=== PATIENT | female | born 1955 | race Caucasian/White ===

== ENCOUNTER → 2018-01-18 | Day surgery (SDC) | payer OTHER ==
--- NOTE | 2018-01-19 17:53 | PATH ---
Cytology Non-Gynecological Report Patient Name: BRITTNI FOSS [facility]. Rec. #: [id number] /Age/Gender: 1955 (Age: 62) / F Account: [id number] Location: RADIOLOGY [facility] Taken: 01/18/2018 Received: 01/18/2018 Reported: 01/19/2018 Physicians: Anamaria Shepard M.D. Specimen(s) Received RIGHT THYROID FNA Clinical History Right thyroid nodule, 1.97 x 1.03 x 1.68 cm Final Diagnosis THYROID, RIGHT, FINE NEEDLE ASPIRATION: SATISFACTORY FOR EVALUATION. BETHESDA CLASS II: BENIGN. CYTOLOGIC FINDINGS ARE CONSISTENT WITH A BENIGN FOLLICULAR NODULE. SMALL FOLLICULAR CELLS, FEW MACROPHAGES, AND ABUNDANT COLLOID PRESENT. Electronically Signed Brittni Kaba M.D. Gross Description Received are eight direct smears, four of which are air-dried and Diff-Quik stained, and four of which are alcohol fixed and Pap stained. Also received is 15 ml of bloody formalin from which one cellblock is prepared.
== END | disposition home or self-care (01) ==
LOC: JRADIR 08:40
PROVIDERS: ATTEND Internal Medicine Endocrinology, Diabetes & Metabolism
PROC: 0G9H3ZX Drainage of Right Thyroid Gland Lobe, Percutaneous Approach, Diagnostic (ICD-10-PCS; principal; 2018-01-18)
DX: E04.1 Nontoxic single thyroid nodule (principal)
CPT/HCPCS: 76942; 88173; 88305-TC

== ENCOUNTER 2019-08-14 04:45 | Day surgery (SDC) | payer OTHER ==
[2019-08-10 15:33] VITALS: BMI 25.0
[2019-08-14] MEDS ORDERED: PROPOFOL 20 ML ONE (10:05)
[2019-08-14] MEDS ORDERED: MIDAZOLAM HCL 2 MG/2 ML SINGLE DOSE VIAL ONE (10:05)
[2019-08-14] MEDS ORDERED: DEXAMETHASONE SOD PHOSPHATE 4 MG/1 ML VIAL ONE (10:07)
[2019-08-14] MEDS ORDERED: LIDOCAINE HCL/PF 2% SDV 5ML VIAL ONE (10:07)
--- NOTE | 2019-08-14 10:20 | HP ---
History & Physical Update - History History: No Change - Physical Physical: No Change - Assessment Assessment: No Change - Plan Plan: No Change (H&P reviwed , no changes , for hysteroscopy , D&C)
[2019-08-14] MEDS ORDERED: KETOROLAC TROMETHAMINE 30 MG/1 ML VIAL ONE (10:50)
[2019-08-14] MEDS ORDERED: oxyCODONE HCL 5 MG TABLET PO PRN (12:09)
[2019-08-14] MEDS ORDERED: ONDANSETRON 4 MG/2 ML VIAL IVPUSH PRN (12:09)
[2019-08-14] MEDS ORDERED: LACTATED RINGERS SOLUTION 1,000 ML IV SCH (12:15)
[2019-08-14 14:04] VITALS: TEMP 97.8
--- NOTE | 2019-08-14 14:28 | OP ---
Operative Note - Note: Operative Date: 08/14/19 Pre-Operative Diagnosis: thicken EM , fibroid, post menopausal Operation: hysteroscopy D&C Findings: atrophic EM, 2 area of small polypoid EM, Surgeon: Hernan Rubio Anesthesia: General Specimens Removed: EMC Estimated Blood Loss (mls): 25 Drains & Tubes with Location: none Blood Volume Replaced (mls): 0 Operative Report Dictated: Yes
[2019-08-14 15:07] VITALS: BP 142/77; PULSE 69
--- NOTE | 2019-08-14 15:17 | OP ---
DATE OF OPERATION: 08/14/2019 PREOPERATIVE DIAGNOSES: Thickened endometrium. Fibroid uterus. Menopausal state. POSTOPERATIVE DIAGNOSES: Thickened endometrium. Fibroid uterus. Menopausal state. PROCEDURES: Hysteroscopy. Dilation and curettage. SURGEON: Hernan Rubio MD ANESTHESIA: General. ANESTHESIOLOGIST: Belkis Gonzalez MD ESTIMATED BLOOD LOSS: 25 mL. OPERATION: Patient was taken to the operating room and had adequate general anesthesia in dorsal lithotomy position. Examination under anesthesia revealed external genitalia to be normal; vagina was atrophic; cervix was clean; no gross lesions; uterus was slightly prominent and irregular with small myomas; adnexa - no masses were palpable. Then, with a weighted speculum in the vagina, anterior lip of cervix was grasped with a single-tooth tenaculum. Uterine cavity was sounded to 6 cm. Then, cervix was slightly dilated with Hegar dilator and then hysteroscope was introduced into the uterine cavity. Endocervical canal appeared to be normal. There were a couple of small, polypoid-like areas at the fundal area and then at the lower uterine segment area. Most of the endometrium appeared to be atrophic. Both cornual regions were identified. No submucous myoma noted. Then, hysteroscope was withdrawn, and cervix was gradually dilated with Hegar dilator, and then endometrium was curetted. A small amount of tissue was obtained. Patient tolerated procedure well. Left the OR in good condition. HERNAN RUBIO M.D. [id number]
--- NOTE | 2019-08-17 15:14 | PATH ---
Surgical Pathology Report Patient Name: AYANA FOSS [facility]. Rec. #: [id number] /Age/Gender: 1955 (Age: 64) / F Account: [id number] Location: [facility] SURGICAL Taken: 08/14/2019 Received: 08/16/2019 Reported: 08/17/2019 Physicians: Hernan Rubio M.D. Specimen(s) Received ENDOMETRIAL CURETTINGS Clinical History Fibroid uterus Final Diagnosis ENDOMETRIAL CURETTINGS: FRAGMENTS OF ENDOMETRIAL POLYP, AND MIXED ENDOCERVICAL/ENDOMETRIAL POLYP. SEPARATE STRIPS OF WEAKLY PROLIFERATIVE ENDOMETRIAL GLANDS, MAY REPRESENT ATROPHIC ENDOMETRIUM. Electronically Signed Bryon Abraham M.D. Gross Description Received in formalin labeled "endometrial curetting," is a 0.9 x 0.6 x 0.2 cm aggregate of sullivan-brown soft tissue fragments. The formalin is filtered and the specimen is entirely submitted in one cassette. /08/16/2019 saudi08/16/2019
== END 2019-08-14 14:45 | disposition home or self-care (01) ==
LOC: JASU-SURG 04:45
PROVIDERS: ATTEND Obstetrics & Gynecology
PROC: 0UDB7ZX Extraction of Endometrium, Via Natural or Artificial Opening, Diagnostic (ICD-10-PCS; principal; 2019-08-14 11:00)
PROC: 0UJD8ZZ Inspection of Uterus and Cervix, Via Natural or Artificial Opening Endoscopic (ICD-10-PCS; 2019-08-14 11:00)
DX: D25.9 Leiomyoma of uterus, unspecified (principal); Z78.0 Asymptomatic menopausal state
CPT/HCPCS: 88305-TC; 94760

== ENCOUNTER 2022-01-21 04:43 | Day surgery (SDC) | payer OTHER ==
[2022-01-19 10:55] VITALS: BMI 24.3
[2022-01-21 11:55] VITALS: TEMP 97.7
[2022-01-21 12:58] VITALS: BP 114/68; PULSE 75
== END 2022-01-21 12:40 | disposition home or self-care (01) ==
LOC: JASU-ENDO 04:43
PROVIDERS: ATTEND Internal Medicine Gastroenterology
PROC: 0DBK8ZX Excision of Ascending Colon, Via Natural or Artificial Opening Endoscopic, Diagnostic (ICD-10-PCS; principal; 2022-01-21 11:00)
DX: Z12.11 Encounter for screening for malignant neoplasm of colon (principal); Z86.010 Personal history of colon polyps; Z80.0 Family history of malignant neoplasm of digestive organs; D12.2 Benign neoplasm of ascending colon
CPT/HCPCS: 88305-TC

== ENCOUNTER 2023-01-27 04:15 | Day surgery (SDC) | payer OTHER ==
[2023-01-26 11:11] VITALS: BMI 24.3
[2023-01-27 10:11] VITALS: TEMP 97.2
[2023-01-27 10:27] VITALS: PULSE 62
[2023-01-27 11:29] VITALS: BP 126/59; RESP 20
== END 2023-01-27 11:13 | disposition home or self-care (01) ==
LOC: JASU-ENDO 04:15
PROVIDERS: ATTEND Internal Medicine Gastroenterology
PROC: 0DB68ZX Excision of Stomach, Via Natural or Artificial Opening Endoscopic, Diagnostic (ICD-10-PCS; 2023-01-27)
PROC: 0DB78ZX Excision of Stomach, Pylorus, Via Natural or Artificial Opening Endoscopic, Diagnostic (ICD-10-PCS; 2023-01-27)
PROC: 0DBM8ZX Excision of Descending Colon, Via Natural or Artificial Opening Endoscopic, Diagnostic (ICD-10-PCS; principal; 2023-01-27 09:30)
DX: Z12.11 Encounter for screening for malignant neoplasm of colon (principal); K63.5 Polyp of colon; K64.8 Other hemorrhoids; Z86.010 Personal history of colon polyps; R10.84 Generalized abdominal pain; R11.0 Nausea
CPT/HCPCS: 88305-TC; 88342-TC

== ENCOUNTER 2024-03-13 05:03 | Day surgery (SDC) | payer OTHER ==
[2024-03-12 08:52] VITALS: BMI 23.2
[2024-03-13] MEDS ORDERED: ONDANSETRON 4 MG/2 ML VIAL IVPUSH PRN ×3 (07:50→10:29)
[2024-03-13] MEDS ORDERED: LACTATED RINGERS SOLUTION 1,000 ML IV SCH ×2 (08:00→10:30)
[2024-03-13] MEDS ORDERED: MIDAZOLAM HCL 2 MG/2 ML SINGLE DOSE VIAL ONE (09:41)
[2024-03-13] MEDS ORDERED: LIDOCAINE HCL/PF 2% SDV 5ML VIAL ONE (09:41)
[2024-03-13] MEDS ORDERED: DEXAMETHASONE SOD PHOSPHATE 4 MG/1 ML VIAL ONE (09:55)
[2024-03-13] MEDS ORDERED: ONDANSETRON 4 MG/2 ML VIAL ONE (09:55)
[2024-03-13] MEDS ORDERED: KETOROLAC TROMETHAMINE 30 MG/1 ML VIAL ONE (09:56)
[2024-03-13] MEDS ORDERED: IBUPROFEN 600 MG TABLET (FP) PO PRN (10:27)
[2024-03-13] MEDS ORDERED: IBUPROFEN 800 MG/8 ML IJ IVPB PRN (10:27)
[2024-03-13] MEDS ORDERED: oxyCODONE HCL 5 MG TABLET PO PRN ×2 (10:27→10:29)
[2024-03-13] MEDS ORDERED: PROMETHAZINE HCL 25 MG/1 ML VIAL IVPB PRN (10:29)
[2024-03-13] MEDS ORDERED: ELECTROLYTE-148 SOLN 1,000 ML IV SCH (10:30)
[2024-03-13 11:29] VITALS: RESP 18
[2024-03-13 13:07] VITALS: BP 141/65; PULSE 59; TEMP 97.3
== END 2024-03-13 13:07 | disposition home or self-care (01) ==
LOC: JASU-SURG 05:03
PROVIDERS: ATTEND Obstetrics & Gynecology
PROC: 0UB98ZZ Excision of Uterus, Via Natural or Artificial Opening Endoscopic (ICD-10-PCS; principal; 2024-03-13 09:30)
DX: N95.0 Postmenopausal bleeding (principal); N84.0 Polyp of corpus uteri
CPT/HCPCS: 88305-TC; 94760